=== PATIENT | female | born 1945 | race Caucasian/White ===

== ENCOUNTER → 2016-10-07 | Outpatient (CLI) | payer MEDICARE ==
[~2016-10-07] MED LIST: ALLO300T2 PO; AMOX500C5 PO; ATOR80TA73 PO; CHOL100045 PO; ESCI10TA PO; INSU100V32 SQ; IRON1CAP36 PO; LSNP10T PO; METF1000 PO; MV-M1TAB21 PO
[2016-10-07 14:00] VITALS: BP 130/80
--- NOTE | 2016-10-07 14:00 | Urgent Care T Sheet Gen (E) ---
Intake General Temperature (Fahrenheit): 98.4 Pulse: 66 Blood Pressure Systolic: 130 Blood Pressure Diastolic: 80 Respirations: 20 SPO2: 98 Description of Symptoms Patient presents with a laceration to the intraoral mucosa. Patient states she was carrying her cat into her house at approx 10:30am when she tripped and fell forward. Hit her chin on the ground which caused her to bite her lip. Notes a large skin flap which she is concerned about. No LOC. No dizziness or nausea or vomiting. History of Present Illness Allergies: Coded Allergies: Cefdinir (Unverified Allergy, Unknown, 10/11/13) ciprofloxacin (Unverified Allergy, Unknown, 10/11/13) exenatide (Unverified Allergy, Unknown, 10/11/13) Home Meds Reported Medications Iron,Fum&Ps/Fa/Vit B&C#18/L.ca (Fusion Plus Capsule)1 Each Capsule2 Tab PO DAILY 10/12/13 Metformin HCl 1,000 Mg Tablet1,000 Mg PO DAILY 10/11/13 Lisinopril 10 Mg Ivwtlq43 Mg PO DAILY 10/11/13 Atorvastatin Calcium 80 Mg Gakouv76 Mg PO DAILY 10/11/13 Allopurinol 300 Mg Rkqhqd133 Mg PO DAILY 10/11/13 Cholecalciferol (Vitamin D3) (Vitamin D)1,000 Unit Tablet1,000 Unit PO DAILY 10/11/13 Escitalopram Oxalate (Lexapro)10 Mg Setqyq82 Mg PO DAILY 10/11/13 Insulin Glargine,Hum.rec.anlog (Lantus)100 Unit/1 Ml Vial25 Unit SQ DAILY 10/11/13 Respiratory Constitutional Symptoms: No syptoms reported EENTM: Mouth Pain Other (intraoral mucosa laceration) All Other Systems Reviewed Remaining Systems: All other systems reviewed with negative findings Past Enwacvm-Uonqkc-Idvvhr Hx Surgeries/Hospitalizations Hospitalization/Surgery Hx: Appey Tonsils gall bladder bariatric surgery right shoulder right knee cataracts Respiratory Respiratory History: Sleep Apnea Comment: Wears cpap Cardiovascular Cardiovascular History: Hypertension, Hypercholesterolemia Neuro/Muscular Neuro/Muscular History: Cataracts Genitouinary Genitourinary History: None Gastrointestinal GI/Endocrine History: None Diabetes Diabetes: No Integumentary Integumentary History: None Cancer History of Cancer?: No Physical Exam Physical Exam General Appearance: WD/WN No apparent distress Eyes, Ears, Nose, Throat Ex: Other (examination of her mouth reveals a 1cm long laceration along the intraoral mucosa of the inferior lip. reduces well but when pressure is applied to surrounding tissue, the laceration gaps open fairly wide. teeth are intact. chin is tender but no bruising.) Neurologic/Psychiatric Exam: Oriented times 4 (converses normally and appropriately) CN's II-X nml Procedures/Interventions Laceration Repair : Wound Location: intraoral mucosa of inferior lip Type: Laceration Wound Appearance: Well Approximated, Bleeding Lesion Length: 1 (cm) Laceration Explored: Clean Anesthesia: 1% Lidocaine (0.7ml total) Suture: Vicryl Suture Size: 5-0 Number of Sutures: 1 Progress The wound reduced easily but was able to be gapped open with traction. Given the location of the wound and her history of DM, she and I agreed it would heal better with closure. Since the injury happened this AM, it really wasn't bleeding too much at time of exam. No foreign object such as food was seen. Patient has been rinsing her mouth constantly while at home. Once numb, I placed 1 suture in order to close the laceration. Patient tolerated procedure without issue. The laceration didn't penetrate the skin of the chin. The wound itself appeared more of a flap than a straight laceration. Departure Urgent Care Impression Impression: Primary Impression: Intraoral laceration Qualified Code: S01.512A - Laceration without foreign body of oral cavity, initial encounter Departure Disposition: 01 HOME OR SELF-CARE Condition: Stable Referrals: Reji Campbell MD (PCP) Additional Instructions: The suture will dissolve with time. It will probably be noticeable as she eats and drinks however I asked her to avoid excessive touching with her tongue. Instructed he rto rinse her mouth with warm water after eating and drinking to prevent any food particles from getting in the wound. As a precaution, I have started her on Amoxicillin TID. Ice to the area. Tylenol as needed for pain. I believe the area will heal rather quickly given that oral injuries tend to heal faster than other injuries Return as needed Patient understands DC instructions. All questions were answered. Scripts Amoxicillin (Amoxil)500 Mg Rnuanus775 Mg PO TID Infection #21 CAP Ref 0 Prov:NAOMI CASTAÑEDA 10/07/16 End of report . NAOMI CASTAÑEDA October 07, 2016 14:00
== END ==
LOC: MHUC 12:53
PROVIDERS: ATTEND Physician Assistant
DX: S01.512A Laceration without foreign body of oral cavity, initial encounter (principal); W01.0XXA Fall on same level from slipping, tripping and stumbling without subsequent striking against object, initial encounter
CPT/HCPCS: 12011; 99213